=== PATIENT | female | born 1955 | race Caucasian/White ===

== ENCOUNTER → 2024-01-23 11:10 | Outpatient (REF) | payer OTHER, SELFPAY | LOC: HWRAD 11:10 | PROVIDERS: ATTENDING PHYSICIAN Nurse Practitioner | DX: Z12.31 Encounter for screening mammogram for malignant neoplasm of breast (principal); Z13.820 Encounter for screening for osteoporosis | CPT/HCPCS: 77063; 77067; 77080 ==

== ENCOUNTER → 2024-08-28 12:42 | Outpatient (REF) | payer MEDICARE, OTHER, SELFPAY | LOC: HWRAD 12:42 | PROVIDERS: ATTENDING PHYSICIAN Nurse Practitioner Adult Health | DX: R30.0 Dysuria (principal) | CPT/HCPCS: 76770 ==

== ENCOUNTER → 2025-02-07 11:46 | Outpatient (REF) | payer MEDICARE, OTHER, SELFPAY | LOC: HWWDC 11:46 | PROVIDERS: ATTENDING PHYSICIAN Nurse Practitioner Adult Health | DX: Z12.31 Encounter for screening mammogram for malignant neoplasm of breast (principal) | CPT/HCPCS: 77063; 77067 ==

== ENCOUNTER → 2025-03-25 15:42 | Outpatient (REF) | payer MEDICARE, OTHER, SELFPAY ==
[2025-03-25 16:23] LABS: Hematocrit 39.7 % (37.0-47.0); Hemoglobin 13.6 g/dL (12.0-16.0); Mean Corp Hgb Conc. 34.3 g/dL (33.0-37.0); Mean Corpuscular Volume 90.6 fL (81.0-99.0); Nucleated Red Blood Cells % 0 %; Platelet Count 203 10^3/uL (130-400); Red Cell Dist. Width 13.0 % (11.5-14.5)
[2025-03-25 16:34] LABS: ALT (SGPT) 30 U/L (0-35); AST (SGOT) 30 U/L (14-36); Albumin 5.4 g/dl (3.5-5.0); Alkaline Phosphatase 91 U/L (38-126); Blood Urea Nitrogen 17 mg/dl (7-17); Calcium 9.9 mg/dl (8.4-10.2); Carbon Dioxide 27 mmol/L (22-30); Chloride 98 mmol/L (98-107); Glucose 117 mg/dl (70-99); Potassium 4.3 mmol/L (3.5-5.1); Sodium 134 mmol/L (135-145); Total Protein 8.0 g/dl (6.3-8.2); eGFR > 60.00
== END ==
LOC: RAD 15:42
PROVIDERS: ATTENDING PHYSICIAN Nurse Practitioner Adult Health
DX: R10.84 Generalized abdominal pain (principal); Z87.19 Personal history of other diseases of the digestive system
CPT/HCPCS: 36415; 74177; 80053; 85025; Q9967